=== PATIENT | female | born 1995 | race Caucasian/White ===

== ENCOUNTER 2020-01-10 16:43 | Emergency (ER) | payer BC ==
[~2020-01-10] VITALS: Ht 165.1 cm; Wt 61.2 kg
--- NOTE | 2020-01-10 16:55 | NUR ---
Dr. Garibay at bedside for MSE
[2020-01-10] MEDS ORDERED: VALACYCLOVIR HCL 500 MG TABLET PO ONE (17:45)
[2020-01-10] MEDS ORDERED: IBUPROFEN 600 MG TABLET PO ONE (17:45)
[2020-01-10 18:15] LABS: *BILIRUBIN,URIN NEGATIVE (NEGATIVE); *BLOOD, URINE NEGATIVE (NEGATIVE); *CLARITY,URINE SLIGHTLY CLOUDY (CLEAR); *COLOR,URINE YELLOW (YELLOW); *KETONES,URINE 1+ (NEGATIVE); *UROBILINOGEN,URINE 0.2 E.U./dl (NORMAL); LEUKOCYTE ESTERASE ,URINE NEGATIVE (NEGATIVE); NITRITE, URINE NEGATIVE (NEGATIVE); PH,URINE 5.5 (5.0-8.0); UGLUCOSE NEGATIVE (NEGATIVE)
[2020-01-10 18:20] LABS: *URINE HCG, QUAL NEG (NEGATIVE)
[2020-01-10] MEDS ORDERED: IBUPROFEN 600 MG TABLET ONE (18:27)
--- NOTE | 2020-01-10 18:30 | NUR ---
Patient discharged to home in stable condition. Written and verbal after care instructions given. Patient verbalizes understanding of instructions. Stressed follow up or return to ER for worsening s/s. Patient ambulated with steady gait. NAD noted
[2020-01-10 18:35] VITALS: BP 105/73
== END 2020-01-10 18:30 | disposition home or self-care (01) ==
LOC: ER 16:45
DX: B00.1 Herpesviral vesicular dermatitis (principal)
CPT/HCPCS: 84703; A4663